=== PATIENT | female | born 1950 | race Caucasian/White ===

== ENCOUNTER 2019-03-15 06:10 | Outpatient (REF) | payer OTHER, SELFPAY ==
[2019-03-15 08:28] LABS: Estmated Average Glucose 123; Hemoglobin A1C 5.9 % (4.0-6.0)
[2019-03-15 11:43] LABS: Chol HDL Ratio 2.61 mg/dL (0.0-4.40); Cholesterol 162 mg/dL (0-200); Glucose 110 mg/dL (65-115); HDL Cholesterol 62 mg/dL (60-100); LDL Cholesterol Calculated 74 mg/dL (50-129); LDL HDL Ratio 1.19 RATIO (0.00-3.22); Triglycerides 131 mg/dL (0-150)
== END 2019-03-15 06:11 | disposition home or self-care (01) ==
LOC: LAB 06:10
PROVIDERS: Family Provider Family Medicine; PCP Family Medicine; Visit Provider Dermatology
DX: Z01.89 Encounter for other specified special examinations (principal)
CPT/HCPCS: 80061; 82947; 83036

== ENCOUNTER 2019-06-25 14:16 | Outpatient (CLI) | payer OTHER, SELFPAY ==
--- NOTE | 2019-06-25 14:25 | MM_ITS ---
WS: [id number] BILATERAL SCREENING DIGITAL MAMMOGRAM WITH CAD HISTORY: SCREEN COMPARISON: 12/20/2017, 12/07/2016, 03/02/2012 Bilateral CC and MLO views submitted. Computer aided detection analyzed. Breast composition: There are scattered areas of fibroglandular density. No suspicious masses, microc alcifications or architectural distortion. Parenchymal pattern is stable. Benign calcifications in ea ch breast. MM/[id number] IMPRESSION: BI-RADS: 2-Benign FOLLOW UP: 1 Year Follow-up
== END 2019-06-25 14:17 | disposition home or self-care (01) ==
PROVIDERS: PCP Family Medicine; Visit Provider Family Medicine
DX: Z12.31 Encounter for screening mammogram for malignant neoplasm of breast (principal)
CPT/HCPCS: 77067

== ENCOUNTER 2020-08-13 08:04 | Outpatient (CLI) | payer MEDICARE, SELFPAY ==
--- NOTE | 2020-08-13 08:10 | MM_ITS ---
WS: [id number] SCREENING DIGITAL MAMMOGRAM WITH CAD HISTORY: SCREENING COMPARISON: 06/25/2019 and 12/20/2017 Bilateral CC and MLO views submitted. Computer aided detection analyzed. Breast composition: There are scattered areas of fibroglandular density. No suspicious masses, microc alcifications or architectural distortion. Benign calcifications in each breast. MM/[id number] IMPRESSION: BI-RADS: 2-Benign FOLLOW UP: 1 Year Follow-up
== END 2020-08-13 08:05 | disposition home or self-care (01) ==
LOC: RADSHAW 08:09
PROVIDERS: PCP Family Medicine; Visit Provider Family Medicine
DX: Z12.31 Encounter for screening mammogram for malignant neoplasm of breast (principal)
CPT/HCPCS: 77067

== ENCOUNTER 2020-09-02 09:29 | Outpatient (CLI) | payer MEDICARE, SELFPAY ==
--- NOTE | 2020-09-02 09:34 | XR_ITS ---
WS: [id number] Exam: XR DEXA axial skeleton* [id number] Date/Time of Exam: 09/02/2020 9:35 AM Reason For Exam: OSTEOPOROSIS DEXA BONE DENSITOMETRY Oxagen The L1-L4 bone mineral density measures 1.045 g/cm2. This corresponds to a T score of -1.1 and Z scor e of -0.5. Left femoral neck bone mineral density measures 0.741 g/cm2. This corresponds to T score of -2.1 and Z score of -1.5. Right femoral neck bone mineral density measures 0.635 g/cm2. This corresponds to a T score of -3.0 a nd Z score of -2.3. Mean femoral neck bone mineral density measures 0.688 g/cm2. This corresponds to a T score of -2.5 an d Z score of -1.9 XR/XR DEXA axial skeleton* [id number] IMPRESSION: Bone mineral density lies in the osteoporotic range. Refer to detailed summary .
== END 2020-09-02 09:30 | disposition home or self-care (01) ==
PROVIDERS: PCP Family Medicine; Visit Provider Family Medicine
DX: M81.0 Age-related osteoporosis without current pathological fracture (principal)
CPT/HCPCS: 77080

== ENCOUNTER 2020-11-06 05:35 | Day surgery (SDC) | payer MEDICARE, SELFPAY ==
[2020-11-02 12:14] VITALS: BMI 30.1
[2020-11-06 05:50] VITALS: BP 146/99; PULSE 72; RESP 18; TEMP 36.8; O2SAT 98
[2020-11-06] MEDS: sodium chloride 0.9% 1,000 ML 30 ML IV (06:25)
--- NOTE | 2020-11-06 06:55 | P.ANESASSM_ITS ---
Pre-Anesthetic Assessment Pre-Anesthetic Assessment: Height/Weight: Height 1.78 m Weight 95.254 kg Proposed Procedure: Operation Date: 11/06/20 07:00 Proposed Procedures p Colonoscopy 90085 Z86.010(Not Applicable) - Temo Martin MD Was Beta Francisco taken within 24 hours: N/A Was Clonidine taken within 24 hours: N/A Last intake: Intake Last Liquid Date 11/05/20 Last Liquid Time 22:00 Last Solid Date 11/04/20 Social: Social History: No alcohol and No tobacco Exam: Pre-Anes Outpt Exam: alert, oriented x 3, clear to auscultation bilat erally and regular rate & rhythm Airway: Submandibular: WNL Cervical ROM: WNL MP: 2 History/ROS: No significant history except as noted Pulmonary: Pulmonary: None reported CV/HEM: CV/HEM: None reported : : None reported Hepatic: Hepatic: None reported GI: GI: GERD Metabolic: Metabolic: Hyperlipidemia Musc/skel: Musc/skel: OA/DJD Neuropsych: Neuropsych: None reported Anesthetic Plan: ASA status: 2 Anesthesia: Anesthesia Evaluation and MAC Risk of > 500 ml blood loss (7ml/kg in children): No Meds/Allergies Current Medications: Current Medications Generic Name Dose Route Start Last Admin Trade Name Freq PRN Reason Stop Dose Admin Sodium Chloride 1,000 mls @ 30 ml s/hr 11/06/20 06:15 11/06/20 06:25 Sodium Chloride 0.9% IV 30 mls/hr .Q24H ALEJANDRA Administration PFSH Anesthesia PFSH: Medical History (Updated 11/06/20 @ 07:03 by Temo Martin MD) Hyperlipidemia Surgical History (System 08/31/20 @ 16:21 by Carrol Castro) History of pelvic surgery Family History (System 08/31/20 @ 16:21 by Carrol Castro) Other Diabetes Social History (System 08/31/20 @ 16:21 by Carrol Castro) Smoking and tobacco status: never smoked History of recent travel: No Data Anesthesia Cardiac Studies: No Data to Display
--- NOTE | 2020-11-06 07:04 | P.HP_ITS ---
Providers/Chief Complaint Primary Care Provider: Vel Corona MD Chief Complaint: Hx of colon polyps History of Present Illness Jhony Bell is a 70 year old female who has a history of a colon 3 years ago. The colon polyp was greater than 1 cm. Review of Systems General: Reports: 10 or more systems reviewed and unremarkable except in HPI and below Const: Denies: fever(s) Card: Denies: chest pain or irregular heart rhythm Resp: Denies: dyspnea Medications/Allergies Home Medications Medication Instructions Recorded Confirmed Last Taken Type atorvastatin 20 mg tablet 20 mg PO DAILY 07/15/20 11/06/20 11/04/20 History betamethasone dipropionate 0.05 % 1 applic TOPICAL BID PRN #45 g 07/15/20 11/06/20 11/04/20 Rx topical ointment raloxifene 60 mg tablet 60 mg PO DAILY 07/15/20 11/06/20 11/04/20 History triamcinolone acetonide 0.1 % 1 applic TOPICAL BID 07/15/20 11/06/20 11/04/20 History topical cream Allergies Allergy/AdvReac Type Severity Reaction Status Date / Time tetracycline Allergy unk Verified 11/06/20 06:00 PFSH PFSH: Medical History Hyperlipidemia Surgical History History of pelvic surgery Family History Other Diabetes Social History Smoking and tobacco status: never smoked History of recent travel: No Physical Exam Const: COMMON NORMALS: no acute distress and patient oriented x3 GENERAL APPEARANCE: cooperative, comfortable and well developed HENMT: COMMON NORMALS: normocephalic and moist oral mucous membranes HEAD & SCALP: normocephalic Chest: COMMONS NORMALS: normal inspection of the chest Resp: COMMON NORMALS: normal respiratory effort and clear to auscultation bilaterally AUSCULTATION: clear to auscultation bilaterally Cardio: COMMON NORMALS: regular rate, regular rhythm, No gallops present (Cardio), No murmurs present (Cardio) and No rub (Cardio) RATE: regular rate RHYTHM: regular rhythm Extremity: COMMON NORMALS: normal to inspection Neuro: COMMON NORMALS: patient oriented x3 and no focal motor deficits Skin: COMMON NORMALS: no rashes or lesions noted GENERAL SKIN EXAM: no rashes or lesions noted A&P Assessment and plan (1) History of colon polyps: Proceed with a colonoscopy we discussed the risk of bleeding, and perforation, and damage intra-abdominal organs. She has no further questions and wishes to proceed. 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
[2020-11-06 07:29] VITALS: BP 147/80; PULSE 65; RESP 18; TEMP 36.1; O2SAT 98
[2020-11-06 07:40] VITALS: BP 138/72; PULSE 61; RESP 18; O2SAT 99
--- NOTE | 2020-11-06 12:20 | ANE.PACU2 ---
Inpatient post-anesthesia follow up: Airway intact: Yes Vital signs: Temperature 97 F Pulse Rate 61 Respiratory Rate 18 Blood Pressure 138/72 Pulse Oximetry 99 Oxygen Delivery Me thod Oxygen Flow Rate Fraction of Inspir ed Oxygen Hydration adequate: Yes Nausea and vomiting: No Pain level: 1 Mental status: Baseline
== END 2020-11-06 08:02 | disposition home or self-care (01) ==
PROVIDERS: PCP Family Medicine; Visit Provider Family Medicine
PROC: 0DJD8ZZ Inspection of Lower Intestinal Tract, Via Natural or Artificial Opening Endoscopic (ICD-10-PCS; CPT 45378; principal; 2020-11-06 07:00)
DX: Z86.010 Personal history of colon polyps (principal); K64.8 Other hemorrhoids; E78.5 Hyperlipidemia, unspecified; K21.9 Gastro-esophageal reflux disease without esophagitis; M19.90 Unspecified osteoarthritis, unspecified site; Z82.49 Family history of ischemic heart disease and other diseases of the circulatory system
CPT/HCPCS: 12345; 45378; 96360; 96361; J2704; J7030

== ENCOUNTER 2022-01-14 07:26 | Outpatient (CLI) | payer MEDICARE, SELFPAY ==
--- NOTE | 2022-01-14 07:59 | MM_ITS ---
WS: [id number] SCREENING DIGITAL BREAST TOMOSYNTHESIS MAMMOGRAM WITH CAD HISTORY: SCREENING COMPARISON: 12/20/2017, 06/25/2019, 08/13/2020, 08/13/2014 Bilateral CC and MLO with tomosynthesis and synthetic mammography submitted. Computer aided detection analyzed. Breast composition: There are scattered areas of fibroglandular density. Irregular shaped asymmetry m easuring 6.8 mm in the central LEFT breast just lateral to the nipple line. This appears more promine nt on today's examination. May have been present on prior studies but better seen today may be due to involution of breast tissue. Additional benign calcifications in each breast. MM/[place] [id number] IMPRESSION: BI-RADS: 0-Incomplete: Need additional imaging evaluation FOLLOW UP: Need Additional Imaging LEFT breast: Spot compression views (CC ). True ML. Ultrasound to follow if abn ormality persists.
== END 2022-01-14 07:27 | disposition home or self-care (01) ==
LOC: RAD 07:30
PROVIDERS: PCP Family Medicine; Visit Provider Family Medicine
DX: Z12.31 Encounter for screening mammogram for malignant neoplasm of breast (principal)
CPT/HCPCS: 77063; 77067

== ENCOUNTER 2022-01-17 10:02 | Outpatient (CLI) | payer MEDICARE, SELFPAY ==
--- NOTE | 2022-01-17 11:32 | MM_ITS ---
WS: [id number] ADDITIONAL VIEWS LEFT MAMMOGRAM WITH DIGITAL BREAST TOMOSYNTHESIS. HISTORY: ABNORMAL MAMMO COMPARISON: 01/14/2022, 08/13/2020 and 06/25/2019 Spot compression views LEFT breast in CC, MLO projections and true ML submitted with digital breast t omosynthesis and SM. Asymmetry in the central LEFT breast resolves with additional imaging. This is most consistent with s uperimposed fibroglandular tissue. No suspicious findings remaining. MM/[id number] IMPRESSION: BI-RADS: 2-Benign FOLLOW UP: 1 Year Follow-up
== END 2022-01-17 10:03 | disposition home or self-care (01) ==
LOC: RAD 10:06
PROVIDERS: PCP Family Medicine; Visit Provider Family Medicine
DX: R92.8 Other abnormal and inconclusive findings on diagnostic imaging of breast (principal); N64.89 Other specified disorders of breast
CPT/HCPCS: 77061; G0279

== ENCOUNTER → 2022-03-14 08:09 | Outpatient (BNVA) | payer SELFPAY | PROVIDERS: PCP Family Medicine; Visit Provider Family Medicine | DX: Z13.6 Encounter for screening for cardiovascular disorders (principal) | CPT/HCPCS: 80061; 82947; 83036 ==

== ENCOUNTER → 2022-05-25 12:57 | Outpatient (BNVA) | payer MEDICARE, SELFPAY | PROVIDERS: Visit Provider Dermatology | DX: L20.89 Other atopic dermatitis (principal) | CPT/HCPCS: 99213 ==

== ENCOUNTER → 2022-09-21 13:32 | Outpatient (BNVA) | payer MEDICARE, SELFPAY | PROVIDERS: Visit Provider Dermatology | DX: L20.89 Other atopic dermatitis (principal) | CPT/HCPCS: 99213 ==

== ENCOUNTER 2023-01-20 12:22 | Outpatient (CLI) | payer MEDICARE, SELFPAY ==
--- NOTE | 2023-01-20 12:24 | MM_ITS ---
WS: [id number] BILATERAL SCREENING DIGITAL TOMOSYNTHESIS MAMMOGRAM WITH CAD HISTORY: SCREENING COMPARISON: 01/17/2022, 01/14/2022, 08/13/2020, 06/25/2019 and 12/07/2016 Bilateral CC and MLO views with tomosynthesis and synthetic mammography submitted. Computer aided det ection analyzed. Breast composition: There are scattered areas of fibroglandular density. No suspicious masses, microc alcifications or architectural distortion. Focal asymmetry in the central LEFT breast similar to rece nt prior examinations. No interval change. IMPRESSION: MM/[place] [id number] BI-RADS: 2-Benign FOLLOW UP: 1 Year Follow-up
== END 2023-01-20 12:23 | disposition home or self-care (01) ==
LOC: RAD 12:22
PROVIDERS: Visit Provider Family Medicine
DX: Z12.31 Encounter for screening mammogram for malignant neoplasm of breast (principal)
CPT/HCPCS: 77063; 77067

== ENCOUNTER → 2023-10-16 12:57 | Outpatient (BNVA) | payer MEDICARE, SELFPAY | PROVIDERS: Visit Provider Nurse Practitioner Family | DX: L20.89 Other atopic dermatitis (principal); L82.1 Other seborrheic keratosis; D22.61 Melanocytic nevi of right upper limb, including shoulder; L81.4 Other melanin hyperpigmentation; L57.8 Other skin changes due to chronic exposure to nonionizing radiation | CPT/HCPCS: 99213 ==

== ENCOUNTER 2023-11-15 05:33 | Emergency (ER) | payer MEDICARE, SELFPAY ==
[2023-11-15 05:43] VITALS: BP 178/106; PULSE 87; RESP 20; TEMP 36.9; O2SAT 97; BMI 30.1
--- NOTE | 2023-11-15 05:44 | XRR_ITS ---
PROCEDURE INFORMATION: Exam: XR Chest Exam date and time: 11/15/2023 5:52 AM Age: 73 years old Clinical indication: Shortness of breath; Additional info: Dyspnea TECHNIQUE: Imaging protocol: Radiologic exam of the chest. Views: 1 view. COMPARISON: No relevant prior studies available. FINDINGS: Lungs: Unremarkable. No consolidation. Pleural spaces: Unremarkable. No pleural effusion. No pneumothorax. Heart/Mediastinum: Unremarkable. No cardiomegaly. Bones/joints: Unremarkable. XR/XR chest 1V portable [id number] IMPRESSION: No acute findings.
--- NOTE | 2023-11-15 05:44 | ECG_ITS ---
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
[2023-11-15 06:00] VITALS: BP 178/106; PULSE 75; O2SAT 95
--- NOTE | 2023-11-15 06:09 | ED_ITS ---
HPI - General Adult 2 General: Chief complaint: General Medical Stated complaint: having trouble breathing, right side pain Time Seen by Provider: 11/15/23 05:58 History of Present Illness: 73-year-old female presents with some mi ld shortness of breath and pain on her right side. Is been going on for about 6 days. Patient reports that if she lays on her right side the pain is little bit worse. 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 She denies any fever or chills. Pain gets worse with deep breath. Patient is currently on azithromycin that was prescribed at urgent care. Associated symptoms: Reports dyspnea; Deny nausea, rash, palpitations or vomiting Related Data Home Medications Medication Instructions Recorded Confirmed atorvastatin 20 mg tablet (Lipitor) 20 mg PO DAILY 07/15/20 03/30/22 raloxifene 60 mg tablet (Evista) 60 mg PO DAILY 07/15/20 03/30/22 Previous Rx's Medication Instructions Recorded tacrolimus 0.1 % topical ointment 1 applic topical BID #100 grams 11/12/20 betamethasone dipropionate 0.05 % 1 applic topical BID #45 grams 04/28/21 topical ointment triamcinolone acetonide 0.1 % 1 applic topical BID #80 grams 04/28/21 topical cream triamcinolone acetonide 0.1 % 1 applic topical BID #454 grams 09/20/21 topical ointment calcipotriene 0.005 % topical cream 1 applic topical BID #120 grams 11/09/21 clobetasol 0.05 % topical ointment 1 applic topical BID 2 weeks #60 11/09/21 grams clobetasol 0.05 % scalp solution 1 applic topical DAILY #50 mL 03/17/22 dupilumab 300 mg/2 mL subcutaneous 600 mg (4 mL) SUBCUT ONCE #4 mL 03/30/22 pen injector (Dupixent) dupilumab 300 mg/2 mL subcutaneous 300 mg (2 mL) SUBCUT .q2 weeks #4 08/15/22 pen injector (Dupixent) mL Review of Systems 2 Const: Denies: fever(s) or chills Card: Denies: palpitations, irregular heart rhythm or edema Resp: Reports: dyspnea and pain on inspiration GI: Denies: abdominal pain, nausea or vomiting : Denies: flank pain or difficulty voiding Musc: Denies: neck pain or back pain Skin/Breast: Denies: rash or pruritus PFSH ED 2 PFSH: Medical History Atopic dermatitis Hyperlipidemia Surgical History History of pelvic surgery Family History Other Diabetes Social History Smoking and tobacco/nicotine status: never used tobacco/nicotine Physical Exam 2 Const: COMMON NORMALS: no acute distress, patient oriented x3, no limitations and alert Resp: COMMON NORMALS: normal respiratory effort, No use of accessory muscles and clear to auscultation bilaterally AUSCULTATION: clear to auscultation bilaterally Cardio: COMMON NORMALS: regular rate and regular rhythm RATE: regular rate RHYTHM: regular rhythm GI: COMMON NORMALS: Soft to palpation and non-tender PALPATION: Yes Soft to palpation Neuro: COMMON NORMALS: patient oriented x3 SENSORIUM/ORIENTATION: Yes alert Psych: COMMON NORMALS: mental status grossly normal, Normal thought process present, cooperative, normal affect and speech normal SPEECH: Yes normal speech THOUGHT PROCESS: Normal thought process present Skin: COMMON NORMALS: no rashes or lesions noted GENERAL SKIN EXAM: no rashes or lesions noted Course 2 Vital Signs: Vital signs: Vital Signs Temperature 98.5 F 11/15/23 05:43 Pulse Rate 67 11/15/23 07:06 Respiratory Rate 18 11/15/23 07:06 Blood Pressure 142/85 11/15/23 07:06 Pulse Oximetry 94 11/15/23 07:06 Oxygen Delivery Me thod Room Air 11/15/23 06:45 [facility] - General Adult Medical Decision Making Patient's diagnostic studies were ordered reviewed and interpreted by me. Patient's labs showed no significant acute findings. She does have very minimally elevated D-dimer but when age-adjusted is within normal limit. We did discuss this finding and did discuss CT but at this time patient feels it has not necessary. Patient has troponin that is 11 with normal 10 with no acute chest pain. EKG shows sinus rhythm with a right bundle, heart rate 80, [place] 153, QTc [address] change elevation noted. Patient's chest x-ray is negative for any acute findings. Patient symptoms are consistent with pleurisy. She does have an appointment with her primary care provider next Monday. She will follow-up with her primary care provider and return to the ER if her symptoms worsen. She is stable and discharged home. Lab Data 11/15/23 06:05 11/15/23 06:05 Radiology Impressions Chest X-Ray 11/15/23 05:44 IMPRESSION: No acute findings. Laboratory Results WBC 7.36 10^3/uL (3.29-11.43) 11/15/23 06:05 RBC 4.58 10^6/uL (3.85-5.65) 11/15/23 06:05 Hgb 13.50 g/dL (11.27-16.99) 11/15/23 06:05 Hct 41.3 % (36-47) 11/15/23 06:05 MCV 90.2 fl (85-98) 11/15/23 06:05 MCH 29.5 pg (27-33) 11/15/23 06:05 MCHC 32.7 g/dL (30-55) 11/15/23 06:05 RDW 12.9 % (12.1-15.1) 11/15/23 06:05 Plt Count 234 10^3/cmm (157-399) 11/15/23 06:05 MPV 10.7 fL (7.4-10.4) H 11/15/23 06:05 Neut % (Auto) 68.3 % 11/15/23 06:05 Lymph % (Auto) 17.8 % 11/15/23 06:05 [place] % (Auto) 10.3 % 11/15/23 06:05 Eos % (Auto) 2.6 % 11/15/23 06:05 Baso % (Auto) 0.7 % 11/15/23 06:05 Neut # (Auto) 5.03 10^3/uL (1.8-7.7) 11/15/23 06:05 Lymph # (Auto) 1.3 10^3/uL (0.8-4.8) 11/15/23 06:05 Hopkins # (Auto) 0.8 10^3/uL (0.2-0.9) 11/15/23 06:05 Eos # (Auto) 0.2 10^3/uL (0.0-0.8) 11/15/23 06:05 Baso # (Auto) 0.1 10^3/uL (0.0-0.1) 11/15/23 06:05 Nucleated RBC % (auto) 0 % 11/15/23 06:05 Nucleated RBCs # 0.0 /100WBC 11/15/23 06:05 D-Dimer 0.80 ug/mLFEU (0-0.59) H 11/15/23 06:05 Sodium 142 mmol/L (136-145) 11/15/23 06:05 Potassium 3.8 mmol/L (3.5-5.1) 11/15/23 06:05 Chloride 108 mmol/L (98-107) H 11/15/23 06:05 Carbon Dioxide 23 mmol/L (22-29) 11/15/23 06:05 Anion Gap 14.8 (5-19) 11/15/23 06:05 BUN 14 mg/dL (8-23) 11/15/23 06:05 Creatinine 0.8 mg/dL (0.5-0.9) 11/15/23 06:05 GFR Calculation Not Reportable 11/15/23 06:05 Glucose 131 mg/dL (65-115) H 11/15/23 06:05 Calculated Osmolality 296 mOsm/kg (285-295) H 11/15/23 06:05 Calcium 8.9 mg/dL (8.5-10.5) 11/15/23 06:05 Magnesium 1.9 mg/dL (1.7-2.3) 11/15/23 06:05 Total Bilirubin 0.3 mg/dL (0.15-1.2) 11/15/23 06:05 AST 13 U/L (0-32) 11/15/23 06:05 ALT 15 U/L (0-33) 11/15/23 06:05 Alkaline Phosphatase 107 U/L (35-105) H 11/15/23 06:05 Troponin T Baseline 11 ng/L (0-10) H 11/15/23 06:05 NT-Pro-B Natriuret Pep 166 pg/mL (0-125) H 11/15/23 06:05 Total Protein 7.0 g/dL (6.6-8.7) 11/15/23 06:05 Albumin 4.1 g/dL (3.5-5.2) 11/15/23 06:05 Globulin 2.9 g/dL (1.3-4.6) 11/15/23 06:05 All radiology interpretation(s) finalized by discharge Discharge Plan Discharge Patient Disposition: Home Clinical Impression: Pleuritic chest pain Condition: Stable Prescriptions: No Action atorvastatin [Lipitor] 20 mg tablet 20 mg PO DAILY raloxifene [Evista] 60 mg tablet 60 mg PO DAILY tacrolimus 0.1 % ointment 1 applic topical BID Qty: 100 2RF Rx Instructions: to arms prn calcipotriene 0.005 % cream 1 applic topical BID Qty: 120 3RF Rx Instructions: rub in gently and completely to affected areas on arms clobetasol 0.05 % ointment 1 applic topical BID 14 Days Qty: 60 1RF Rx Instructions: to affected areas no more than 2 weeks/mo triamcinolone acetonide 0.1 % ointment 1 applic topical BID Qty: 454 1RF Rx Instructions: Apply to affected areas twice daily for 2 weeks alternating with clobetasol lidocaine-epinephrine 1 %-1:100,000 solution 2 ml SUBCUT ONCE Qty: 20 0RF clobetasol 0.05 % solution 1 applic topical DAILY Qty: 50 3RF Rx Instructions: Apply a few drops to itchy areas on scalp as needed betamethasone dipropionate 0.05 % ointment 1 applic topical BID Qty: 45 3RF Rx Instructions: to arms alt. with triamcinolone triamcinolone acetonide 0.1 % cream 1 applic topical BID Qty: 80 1RF Rx Instructions: to arms alternating with clobetasol Dupixent Pen 300 mg/2 mL pen injector 600 mg SUBCUT ONCE Qty: 4 0RF Rx Instructions: Loading dose: inject 600mg SC divided in 2 sites x 1 Dupixent Pen 300 mg/2 mL pen injector 300 mg SUBCUT .q2 weeks Qty: 4 4RF Rx Instructions: For maintenance starting 2 weeks after loading dose Discharge Orders: Discharge ED (Routine); Ordered 11/15/23 Ordered By: Arnold Swan Discharge Diet: Usual diet Discharge Activity: Resume usual activity and Increase activity as tolerated Patient Instructions: Pleurisy (ED), Opioid Safety, Pain Management Activity Restrictions/Additional Instructions: Please keep your appointment with your primary care provider for next week. Return to the ER with any concerns. 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
[2023-11-15 06:11] LABS: Basophils # 0.1 10^3/uL (0.0-0.1); Basophils % 0.7 %; Eosinophils # 0.2 10^3/uL (0.0-0.8); Eosinophils % 2.6 %; Hematocrit 41.3 % (36-47); Lymphocytes # 1.3 10^3/uL (0.8-4.8); Lymphocytes % 17.8 %; Mean Corpuscular HGB Conc 32.7 g/dL (30-55); Mean Corpuscular Hemoglobin 29.5 pg (27-33); Mean Corpuscular Volume 90.2 fl (85-98); Mean Platelet Volume 10.7 fL (7.4-10.4); Monocytes # 0.8 10^3/uL (0.2-0.9); Monocytes % 10.3 %; Neutrophils # 5.03 10^3/uL (1.8-7.7); Neutrophils % 68.3 %; Nucleated Red Blood Cells % 0 %; Platelet Count 234 10^3/cmm (157-399); Red Blood Count 4.58 10^6/uL (3.85-5.65); Red Cell Distribution Width 12.9 % (12.1-15.1); White Blood Count 7.36 10^3/uL (3.29-11.43)
[2023-11-15 06:16] VITALS: BP 145/85; PULSE 78; RESP 26; O2SAT 96
[2023-11-15 06:29] LABS: Troponin(5th) Baseline 11 ng/L (0-10)
[2023-11-15 06:31] LABS: Alanine Aminotransferase 15 U/L (0-33); Albumin Level 4.1 g/dL (3.5-5.2); Alkaline Phosphatase 107 U/L (35-105); Anion Gap 14.8 (5-19); Aspartate Amino Transferase 13 U/L (0-32); Blood Urea Nitrogen 14 mg/dL (8-23); Calcium 8.9 mg/dL (8.5-10.5); Carbon Dioxide 23 mmol/L (22-29); Chloride 108 mmol/L (98-107); Creatinine Clr Calc Pharmacy 80.6454; Globulin 2.9 g/dL (1.3-4.6); Glucose 131 mg/dL (65-115); Magnesium 1.9 mg/dL (1.7-2.3); Osmolality Calculated 296 mOsm/kg (285-295); Potassium 3.8 mmol/L (3.5-5.1); Sodium 142 mmol/L (136-145); Total Bilirubin 0.3 mg/dL (0.15-1.2)
[2023-11-15 06:45] VITALS: BP 145/85; PULSE 66; RESP 16; O2SAT 94
[2023-11-15 07:06] VITALS: BP 142/85; PULSE 67; RESP 18; O2SAT 94
[2023-11-15 07:35] LABS: NT Pro B Type Natriuretic Pept 166 pg/mL (0-125)
== END 2023-11-15 07:20 | disposition home or self-care (01) ==
PROVIDERS: Emergency Medicine; Emergency Provider Student in an Organized Health Care Education/Training Program
DX: R07.81 Pleurodynia (principal); E78.5 Hyperlipidemia, unspecified
CPT/HCPCS: 71045; 80053; 83735; 83880; 84484; 85025; 85378; 93005; 99285

== ENCOUNTER → 2024-02-15 14:10 | Outpatient (BNVA) | payer MEDICARE, SELFPAY | PROVIDERS: PCP Family Medicine; Referring Provider Family Medicine; Visit Provider Internal Medicine Cardiovascular Disease | DX: R94.31 Abnormal electrocardiogram [ECG] [EKG] (principal); I45.10 Unspecified right bundle-branch block; J90 Pleural effusion, not elsewhere classified; Z87.898 Personal history of other specified conditions; Z86.16 Personal history of COVID-19 | CPT/HCPCS: 99204 ==

== ENCOUNTER 2024-02-23 08:48 | Outpatient (CLI) | payer MEDICARE, SELFPAY ==
--- NOTE | 2024-02-23 09:15 | USCV_ITS ---
Jhony Bell Age: 73 Gender: F : 1950 Exam Date: 02/23/2024 09:19 Ordering Phys: Allison Lindquist MD ([email or web address]) Technologist: JL [place] [facility] [place]: [place] BP: 142 / 82 HR: 58 Rhythm: Sinus Technical Quality: Adequate MEASUREMENTS (Male / Female) Normal Values 2D ECHO LV Diastolic Diameter PLAX 4.2 cm 4.2 - 5.9 / 3.9 - 5.3 cm IVS Diastolic Thickness 1.1 cm 0.6 - 1.0 / 0.6 - 0.9 cm IVS Systolic Thickness 1.9 cm LVPW Diastolic Thickness 1.8 cm 0.6 - 1.0 / 0.6 - 0.9 cm LVPW Systolic Thickness 2.3 cm LVOT Diameter 2.0 cm LV Ejection Fraction 2D Teich 58.6 % LV Ejection Fraction MOD 4C 66.3 % LV Ejection Fraction MOD 2C 58.3 % LV Ejection Fraction 2C AL 64.4 % LA Diameter 3.7 cm RA Systolic Volume 4C AL 12.2 ml RA Systolic Volume 4C MOD 12.0 ml LA Sys Volume AL 38.4 cm cubed LA Sys Volume Index AL 17.3 cm cubed/m squared Aorta at Sinotubular Diameter 2.4 cm IVC Diameter 1.6 cm M-MODE LA Ao Ratio MM 1.3 AV Cusp Separation MM 1.6 cm DOPPLER AV Peak Velocity 164.7 cm/s LVOT Peak Velocity 113.0 cm/s AV Area Cont Eq vti 2.2 cm squared AV Area Cont Eq pk 2.1 cm squared MV Peak Velocity 124.0 cm/s MV Area PHT 2.4 cm squared Mitral E to A Ratio 0.6 TR Peak Velocity 224.0 cm/s TR Peak Gradient 20.1 mmHg TR Mean Velocity 184.0 cm/s TR Mean Gradient 14.5 mmHg TR Velocity Time Integral 72.4 cm TV Peak E Velocity 49.0 cm/s PV Peak Velocity 114.0 cm/s RV Ejection Time 0.4 s FINDINGS Left Ventricle Normal left ventricular size, systolic function and wall thickness, with no regional wall motion abnormalities. Left ventricular ejection fraction is estimated at 60%. Grade I/IV diastolic dysfunction (abnormal relaxation filling pattern), normal to mildly elevated filling pressures. Right Ventricle The right ventricle is normal in size and function. Right Atrium The right atrium is normal in size. Left Atrium Moderately increased left atrial size. Mitral Valve Mildly thickened mitral valve. No mitral valve stenosis. Trace mitral valve regurgitation. Aortic Valve Mild aortic valve calcification. No aortic valve stenosis. Trace aortic valve regurgitation. Tricuspid Valve Structurally normal tricuspid valve without significant stenosis or regurgitation. Pulmonary artery systolic pressure is normal. Pulmonic Valve Structurally normal pulmonic valve without significant stenosis. There is no pulmonic regurgitation. Pericardium Normal pericardium without effusion. Aorta Normal ascending aorta dimension. IVC The inferior vena cava appears normal. CONCLUSIONS Normal left ventricular size, systolic function and wall thickness, with no regional wall motion abnormalities. Left ventricular ejection fraction is estimated at 60%. Grade I/IV diastolic dysfunction (abnormal relaxation filling pattern), normal to mildly elevated filling pressures. Mildly thickened mitral valve. No mitral valve stenosis. Trace mitral valve regurgitation. Mild aortic valve calcification. No aortic valve stenosis. Trace aortic valve regurgitation. There is no pericardial effusion. Right atrial pressure is around 5 mm of mercury. Allison Lindquist MD (Electronically Signed) Final Date: 05 March 2024 02:59 S
== END 2024-02-23 08:49 | disposition home or self-care (01) ==
LOC: RAD 08:49
PROVIDERS: PCP Family Medicine; Visit Provider Internal Medicine Cardiovascular Disease
DX: I50.30 Unspecified diastolic (congestive) heart failure (principal); I51.7 Cardiomegaly; I34.89 Other nonrheumatic mitral valve disorders
CPT/HCPCS: 93306

== ENCOUNTER 2024-04-05 08:25 | Outpatient (CLI) | payer MEDICARE, SELFPAY ==
--- NOTE | 2024-04-05 | MM_ITS ---
WS: [id number] BILATERAL SCREENING DIGITAL TOMOSYNTHESIS MAMMOGRAM WITH CAD HISTORY: ANNUAL SCREENING COMPARISON: 01/20/2023, 01/14/2022, 12/20/2017 Bilateral CC and MLO views with tomosynthesis and synthetic mammography submitted. Computer aided detection analyzed. Breast composition: There are scattered areas of fibroglandular density. No suspicious masses, microcalcifications or architectural distortion. There are a few scattered benign calcifications in each breast. MM/MM [facility] tomosynthesis [id number] IMPRESSION: BI-RADS: 2 - Benign. FOLLOW UP: 1 Year Follow-up
== END 2024-04-05 08:26 | disposition home or self-care (01) ==
PROVIDERS: PCP Family Medicine; Visit Provider Family Medicine
DX: Z12.31 Encounter for screening mammogram for malignant neoplasm of breast (principal); R92.323 Mammographic fibroglandular density, bilateral breasts; R92.1 Mammographic calcification found on diagnostic imaging of breast
CPT/HCPCS: 77063; 77067

== ENCOUNTER → 2024-05-30 14:26 | Outpatient (BNVA) | payer MEDICARE, SELFPAY | PROVIDERS: PCP Family Medicine; Visit Provider Internal Medicine Cardiovascular Disease | DX: I51.89 Other ill-defined heart diseases (principal); Z87.09 Personal history of other diseases of the respiratory system; I45.10 Unspecified right bundle-branch block; I10 Essential (primary) hypertension; R93.1 Abnormal findings on diagnostic imaging of heart and coronary circulation; Z79.82 Long term (current) use of aspirin | CPT/HCPCS: 99214 ==

== ENCOUNTER → 2024-10-17 08:56 | Outpatient (BNVA) | payer MEDICARE, SELFPAY | PROVIDERS: PCP Family Medicine; Visit Provider Nurse Practitioner Family | DX: L20.89 Other atopic dermatitis (principal); L81.4 Other melanin hyperpigmentation; L57.8 Other skin changes due to chronic exposure to nonionizing radiation; L82.0 Inflamed seborrheic keratosis; L53.8 Other specified erythematous conditions; R20.8 Other disturbances of skin sensation | CPT/HCPCS: 17110; 99213 ==